=== PATIENT | male | born 1960 | race African-American/Black ===

== ENCOUNTER 2017-11-28 17:54 | Emergency (ER) | payer SELFPAY ==
[~2017-11-28] VITALS: Ht 170.2 cm; Wt 79.4 kg
--- NOTE | 2017-11-28 18:11 | Emergency Room Report ---
History of Present Illness General Chief Complaint: Male Urogenital Problems Source: Patient Present Illness HPI 57-year-old male, history of BPH, presenting here for urinary cath removal. Patient states that he got it placed due to urinary retention about 2 months ago , states that he has seen a urologist but did not remove it. States that he was supposed to get removed a month ago but forgot to schedule an appointment. Denies any complaints at this time Allergies: Coded Allergies: PHENYTOIN (Verified Allergy, Unknown, 11/28/17) Patient History Past Medical History: see triage record Past Surgical History: none Pertinent Family History: none Reviewed Nursing Documentation: PMH: Agreed; PSxH: Agreed Nursing Documentation-PMH Hx Cerebrovascular Accident: No - BPH Review of Systems All Other Systems: negative except mentioned in HPI Physical Exam Vital Signs Date Time Temp Pulse Resp B/P (MAP) Pulse Ox O2 Delivery O2 Flow Rate FiO2 11/28/17 17:59 98.2 88 20 150/106 99 Room Air 98.2 Sp02 EP Interpretation: reviewed, normal General Appearance: normal inspection, well appearing, no apparent distress, alert, GCS 15, non-toxic Head: normocephalic, atraumatic Eyes: bilateral eye normal inspection, bilateral eye PERRL, bilateral eye EOMI ENT: normal ENT inspection, normal pharynx, normal voice, moist mucus membranes Neck: normal inspection, full range of motion, supple Respiratory: normal inspection, lungs clear, normal breath sounds, no respiratory distress, no retraction, no wheezing, speaking full sentences, chest symmetrical Cardiovascular #1: normal inspection, regular rate, rhythm, no edema, normal capillary refill Cardiovascular #2: 2+ radial (R), 2+ radial (L) Gastrointestinal: normal inspection, non tender, soft, non-distended, no guarding Genitourinary: no CVA tenderness Musculoskeletal: normal inspection, back normal, normal range of motion, non- tender Neurologic: normal inspection, alert, oriented x3, responsive, motor strength/ tone normal, sensory intact, normal gait, speech normal Psychiatric: normal inspection, judgement/insight normal, memory normal Skin: normal inspection, normal color, no rash, warm/dry, well hydrated, normal turgor Medical Decision Making Diagnostic Impression: Primary Impression: BPH (benign prostatic hyperplasia) Additional Impression: Encounter for [facility] catheter removal ER Course 57-year-old male here for removal of his urinary catheter DDX: BPH, here for removal of his urinary cath Plan: Remove cath ER course: Patient has remained stable during ED stay. Cath removed without complication Has been able to urinate without issue Disposition: Patient is to be discharged to home. Patient is instructed to follow up with their urologist in 2 days without fail Please note that this Emergency Department Report was dictated using [employer] collector technology software, occasionally this can lead to erroneous entry secondary to interpretation by the dictation equipment Last Vital Signs Date Time Temp Pulse Resp B/P (MAP) Pulse Ox O2 Delivery O2 Flow Rate FiO2 11/28/17 17:59 98.2 88 20 150/106 99 Room Air 98.2 Disposition: HOME, SELF-CARE Condition: Improved Silvana Raymundo M.D. Nov 28, 2017 18:11
[2017-11-28 18:14] VITALS: BP 150/106
[2017-11-28 18:17] VITALS: BP 150/106
== END 2017-11-28 18:35 | disposition home or self-care (01) ==
LOC: EMR 18:34
DX: N40.1 Benign prostatic hyperplasia with lower urinary tract symptoms (principal); R33.8 Other retention of urine; Z46.6 Encounter for fitting and adjustment of urinary device
CPT/HCPCS: 99283